=== PATIENT | female | born 1995 | race Caucasian/White ===

== ENCOUNTER 2017-10-05 15:06 | Inpatient (IN) | payer MEDICAID ==
[~2017-10-05] VITALS: Ht 149.9 cm; Wt 92.7 kg
[2017-10-06] VITALS (18 sets, daily range): BP systolic 80–106; BP diastolic 41–64; PULSE 73–90; TEMP 97.3–98.5
[2017-10-06 06:08] LABS: BASO % 0.1 % (0.0-2.0); EOS # 0.1 (0.0-0.7); EOS % 1.1 % (0-4.0); GRAN # 4.6 (1.4-6.5); GRAN % 61.2 % (42.2-75.2); HEMATOCRIT 30.4 % (37.0-47.0); HEMOGLOBIN 10.1 g/dl (12.5-16.0); MEAN CELL VOLUME 85 fl (80.0-100.0); MEAN CORPUSCULAR HEMOGLOBIN 28 pg (27.0-31.0); MEAN CORPUSCULAR HGB CONC 33 g/dl (33.0-37.0); MEAN PLATELET VOLUME 11.2 fl (7.4-10.4); MONO # 0.7 (0.1-0.6); MONO % 9.8 % (1.7-9.3); PLATELET COUNT 230 K/mm3 (130-400); RED BLOOD COUNT 3.57 M/mm3 (4.10-5.30); REDCELL DISTRIBUTION WIDTH-CV 14.1 % (11.5-14.5)
[2017-10-06] MEDS ORDERED: TYLENOL 500MG500 MG PO (06:20)
[2017-10-06] MEDS ORDERED: PRENATAL VITAMI1 TA3 PO (06:20)
[2017-10-06] MEDS ORDERED: PERCOCET 325 MG1 TA2 PO (07:19)
[2017-10-06] MEDS ORDERED: MOTRIN 800800 MG/TAB PO (07:19)
[2017-10-07 08:23] LABS: HEMATOCRIT 30.2 % (37.0-47.0); HEMOGLOBIN 9.9 g/dl (12.5-16.0)
[2017-10-07 08:45] VITALS: BP 104/54; PULSE 84; TEMP 98.2
[2017-10-07 16:17] VITALS: BP 112/55; PULSE 87
[2017-10-07 20:25] VITALS: BP 107/53; PULSE 87; TEMP 97.8
[2017-10-08 07:57] VITALS: BP 102/54; PULSE 77; TEMP 97.9
== END 2017-10-08 18:20 | disposition home or self-care (01) | DRG 765 ==
LOC: LDR 10-06 05:17 → OB 10-06 05:18 → LDR 10-06 15:06 → OB 10-08 18:20
PROVIDERS: Obstetrics & Gynecology
PROC: 10D00Z1 Extraction of Products of Conception, Low, Open Approach (ICD-10-PCS; principal; 2017-10-06)
DX: O34.211 Maternal care for low transverse scar from previous cesarean delivery (principal); Z68.41 Body mass index [BMI] 40.0-44.9, adult; Z3A.39 39 weeks gestation of pregnancy; Z37.0 Single live birth; Z22.330 Carrier of Group B streptococcus; O99.214 Obesity complicating childbirth
CPT/HCPCS: J0690; J1885; J2270; J2370; J2405; J2590; J7120

== ENCOUNTER 2020-11-21 20:38 | Emergency (ER) | payer BC ==
[~2020-11-21] VITALS: Ht 152.4 cm; Wt 109.1 kg
[~2020-11-21 20:38] MED LIST: MOTRIN 800800 MG/TAB PO; PERCOCET 325 MG1 TA2 PO; PRENATAL VITAMI1 TA3 PO; TYLENOL 500MG500 MG PO
[2020-11-21 20:45] VITALS: TEMP 98
[2020-11-21 21:13] LABS: BASO % 0.3 % (0.0-2.0); EOS # 0.1 (0.0-0.7); EOS % 1.2 % (0-4.0); GRAN # 5.7 (1.4-6.5); GRAN % 73.1 % (42.2-75.2); HEMATOCRIT 40.7 % (37.0-47.0); HEMOGLOBIN 13.8 g/dl (12.5-16.0); LYMPH # 1.2 (1.2-3.4); LYMPH % 15.8 % (20.0-51.0); MEAN CELL VOLUME 86 fl (80.0-100.0); MEAN CORPUSCULAR HEMOGLOBIN 29 pg (27.0-31.0); MEAN CORPUSCULAR HGB CONC 34 g/dl (33.0-37.0); MEAN PLATELET VOLUME 10.3 fl (7.4-10.4); MONO # 0.7 (0.1-0.6); MONO % 9.3 % (1.7-9.3); PLATELET COUNT 261 K/mm3 (130-400); RED BLOOD COUNT 4.75 M/mm3 (4.10-5.30); REDCELL DISTRIBUTION WIDTH-CV 13.6 % (11.5-14.5)
[2020-11-21 21:27] LABS: ALBUMIN 4.4 gm/dL (3.5-5.0); BILIRUBIN,TOTAL 0.5 mg/dL (0.0-1.0); CALCIUM 9.4 mg/dL (8.4-10.2); CREATININE, serum 0.64 (0.52-1.25); POTASSIUM 4.2 mmol/L (3.4-5.0); TOTAL PROTEIN 8.1 gm/dL (6.4-8.2)
[2020-11-21 22:23] LABS: COLLECTION METHOD CLEAN CATCH
[2020-11-21 22:28] LABS: MUCOUS Present /lpf; PH 5 (5-8); URINE APPEARANCE Cloudy; URINE BACTERIA Rare /hpf; URINE BILIRUBIN Negative (NEGATIVE); URINE BLOOD Negative (NEGATIVE); URINE COLOR Yellow; URINE GLUCOSE Negative (NEGATIVE); URINE KETONE Negative (NEGATIVE); URINE LEUKOCYTE ESTERASE Negative (NEGATIVE); URINE NITRATE Negative (NEGATIVE); URINE PROTEIN(semi-quant) Negative (NEGATIVE); URINE RBC 0-2 /hpf
[2020-11-21 22:54] VITALS: BP 96/57; PULSE 111
== END 2020-11-21 22:54 | disposition home or self-care (01) ==
LOC: COL.ER 20:38
PROVIDERS: Family Medicine
DX: K80.50 Calculus of bile duct without cholangitis or cholecystitis without obstruction (principal); Z32.02 Encounter for pregnancy test, result negative
CPT/HCPCS: C9113; J2405; J7120

== ENCOUNTER → 2020-12-12 | Outpatient (CLI) | payer BC | LOC: COL.RAD 12-08 10:30 | DX: K76.0 Fatty (change of) liver, not elsewhere classified (principal) ==

== ENCOUNTER → 2023-09-21 | Outpatient (CLI) | payer BC ==
[2023-09-21 08:55] LABS: BASO % 0.5 % (0.0-2.0); EOS # 0.2 K/mm3 (0.0-0.7); EOS % 2.4 % (0.0-4.0); GRAN # 4.2 K/mm3 (1.4-6.5); GRAN % 63.1 % (42.2-75.2); HEMATOCRIT 42.1 % (37.0-47.0); HEMOGLOBIN 13.8 g/dl (12.5-16.0); LYMPH # 1.8 K/mm3 (1.2-3.4); LYMPH % 27.7 % (20.0-51.0); MEAN CELL VOLUME 87 fl (80.0-100.0); MEAN CORPUSCULAR HEMOGLOBIN 28 pg (27-31); MEAN CORPUSCULAR HGB CONC 33 g/dl (33.0-37.0); MEAN PLATELET VOLUME 10.2 fl (7.4-10.4); MONO # 0.4 K/mm3 (0.1-0.6); MONO % 5.8 % (1.7-9.3); PLATELET COUNT 294 K/mm3 (130-400); RED BLOOD COUNT 4.86 M/mm3 (4.10-5.30); REDCELL DISTRIBUTION WIDTH-CV 13.9 % (11.5-14.5)
[2023-09-21 09:50] LABS: ALBUMIN 3.9 g/dL (3.5-5.0); BILIRUBIN,TOTAL 0.5 mg/dL (0.2-1.2); CHOLESTEROL RISK RATIO 5.5; CREATININE, serum 0.75 mg/dL (0.57-1.11); TOTAL PROTEIN 7.7 g/dl (6.2-8.1)
[2023-09-21 10:09] LABS: THYROID STIMULATING HORMONE 1.813 uIU/mL (0.350-4.940)
[2023-09-21 23:25] LABS: INSULIN 47 uIU/mL (2-23)
== END ==
LOC: COL.LAB 08:10
PROVIDERS: Physician Assistant
DX: Z13.228 Encounter for screening for other metabolic disorders (principal)

== ENCOUNTER → 2023-11-14 | Outpatient (CLI) | payer BC | LOC: COL.RAD 08:29 | DX: K76.0 Fatty (change of) liver, not elsewhere classified (principal); R14.0 Abdominal distension (gaseous) ==